=== PATIENT | male | born 1950 | race Caucasian/White ===

== ENCOUNTER → 2018-04-02 00:54 | Outpatient (CLI) | payer MEDICARE, SELFPAY ==
[2018-04-02 11:33] LABS: Cholesterol 214 mg/dL (50-200); HDL Cholesterol 54 mg/dL (40-60); LDL CHOLESTEROL 141 mg/dL (<100); Triglyceride 137 mg/dL (30-150)
== END ==
PROVIDERS: PCP Family Medicine; Visit Provider Family Medicine
DX: E78.5 Hyperlipidemia, unspecified (principal)
CPT/HCPCS: 36415; 80061; 83721

== ENCOUNTER → 2018-06-03 09:22 | Outpatient (BNVA) | payer MEDICARE, OTHER, SELFPAY | PROVIDERS: PCP Family Medicine; Referring Provider Family Medicine; Visit Provider Orthopaedic Surgery | DX: M25.562 Pain in left knee (principal); M17.12 Unilateral primary osteoarthritis, left knee | CPT/HCPCS: 20610; 99214; J1040 ==

== ENCOUNTER 2018-08-04 13:19 | Outpatient (CLI) | payer MEDICARE, OTHER, SELFPAY ==
--- NOTE | 2018-08-04 11:41 | DI.RAD_ITS ---
SYMPTOMS/DIAGNOSIS: LOW BACK PAIN, M54.5 LUMBAR SPINE: There is no evidence of compression fracture, spondylolysis or spondylolisthesis. There is no significant scoliosis. There are small to moderate-sized endplate osteophytes. Facet degenerative changes are seen, greatest at L4-5 and L5-S1. IMPRESSION: Degenerative changes, greatest at L4-5 and L5-S1.
== END 2018-08-04 13:39 ==
PROVIDERS: PCP Family Medicine; Visit Provider Family Medicine
DX: M47.817 Spondylosis without myelopathy or radiculopathy, lumbosacral region (principal); M54.5 Low back pain
CPT/HCPCS: 72110

== ENCOUNTER 2019-04-27 08:31 | Outpatient (CLI) | payer MEDICARE, SELFPAY ==
[2019-04-27 12:20] LABS: TSH 2.21 uIU/mL (0.36-3.74)
== END 2019-04-27 08:51 ==
PROVIDERS: PCP Family Medicine; Visit Provider Family Medicine
DX: E03.9 Hypothyroidism, unspecified (principal)
CPT/HCPCS: 36415; 84443

== ENCOUNTER → 2020-02-21 09:44 | Outpatient (BNVA) | payer MEDICARE, SELFPAY | PROVIDERS: PCP Family Medicine; Referring Provider Family Medicine; Visit Provider Orthopaedic Surgery | DX: M72.2 Plantar fascial fibromatosis (principal); M79.672 Pain in left foot | CPT/HCPCS: 99213 ==

== ENCOUNTER 2020-04-16 02:34 | Outpatient (CLI) | payer MEDICARE, SELFPAY ==
[2020-04-16 12:42] LABS: TSH 4.12 uIU/mL (0.36-3.74)
== END 2020-04-16 02:54 ==
PROVIDERS: PCP Family Medicine; Visit Provider Family Medicine
DX: E03.9 Hypothyroidism, unspecified (principal)
CPT/HCPCS: 36415; 84443

== ENCOUNTER 2021-05-10 02:34 | Outpatient (CLI) | payer MEDICARE, SELFPAY ==
[2021-05-10 12:36] LABS: Magnesium 1.9 mg/dL (1.8-2.4)
[2021-05-10 12:45] LABS: Calculated LDL 169 mg/dL (<100); Cholesterol 259 mg/dL (<200); HDL Cholesterol 65 mg/dL (40-60); Triglyceride 126 mg/dL (<150)
[2021-05-10 19:24] LABS: PSA, Screening 0.5 ng/mL (0.0-6.5)
== END 2021-05-10 02:35 | disposition home or self-care (01) ==
LOC: LOS 02:34
PROVIDERS: PCP Family Medicine; Visit Provider Family Medicine
DX: E03.9 Hypothyroidism, unspecified (principal); E83.42 Hypomagnesemia; N40.0 Benign prostatic hyperplasia without lower urinary tract symptoms; Z12.5 Encounter for screening for malignant neoplasm of prostate
CPT/HCPCS: 36415; 80061; 84153; 83735; 84443

== ENCOUNTER 2021-10-22 08:48 | Outpatient (CLI) | payer MEDICARE, SELFPAY ==
--- NOTE | 2021-10-22 08:30 | DI.RAD_ITS ---
Exam(s) XR SHOULDER RT COMPLETE 2+V EXAM: XR SHOULDER RT COMPLETE 2+V CLINICAL HISTORY: right shoulder pain TECHNIQUE: COMPARISON: CR LEFT SHOULDER COMPLETE from 09/12/2015 FINDINGS: Two views were obtained. There may be slight narrowing of the cartilaginous joint space of the gleno humeral joint. There are minimal hypertrophic marginal osteophytes of the humeral head and glenoid, mild hypertrophic degenerative changes also noted at the AC joint. IMPRESSION: Mild degenerative changes as described above. RADIATION DOSE DELIVERED: Total DLP
== END 2021-10-22 08:49 | disposition home or self-care (01) ==
LOC: DIORS 08:48
PROVIDERS: PCP Family Medicine; Referring Provider Family Medicine; Visit Provider Physician Assistant
DX: M25.511 Pain in right shoulder (principal); M19.011 Primary osteoarthritis, right shoulder; M75.101 Unspecified rotator cuff tear or rupture of right shoulder, not specified as traumatic; M75.51 Bursitis of right shoulder
CPT/HCPCS: 99213; 73030

== ENCOUNTER 2022-06-02 04:07 | Outpatient (CLI) | payer MEDICARE, SELFPAY ==
[2022-06-02 12:56] LABS: Anion Gap 7.3 mmol/L (3-11); BUN 19 mg/dL (7-18); CO2 29.7 mmol/L (21.0-32.0); CREATININE 1.2 mg/dL (0.70-1.30); Calcium 9.2 mg/dL (8.5-10.1); Calculated LDL 65 mg/dL (<100); Chloride 106 mmol/L (98-107); Cholesterol 145 mg/dL (<200); Estimated GFR 64.25 (mL/min/1.73m2); Glucose 93 mg/dL (74-106); HDL Cholesterol 63 mg/dL (40-60); Potassium 3.8 mmol/L (3.5-5.1); Sodium 143 mmol/L (136-145); TSH (W/Ref FT4) 1.19 uIU/mL (0.36-3.74); Triglyceride 89 mg/dL (<150)
== END 2022-06-02 04:08 | disposition home or self-care (01) ==
LOC: LOS 04:09
PROVIDERS: PCP Family Medicine; Visit Provider Family Medicine
DX: E03.9 Hypothyroidism, unspecified (principal); R79.89 Other specified abnormal findings of blood chemistry; I48.91 Unspecified atrial fibrillation
CPT/HCPCS: 36415; 80048; 80061; 84443

== ENCOUNTER 2022-06-16 11:41 | Outpatient (CLI) | payer MEDICARE, SELFPAY | END 2022-06-16 11:42 | disposition home or self-care (01) | LOC: DIORS 11:42 | PROVIDERS: PCP Family Medicine; Referring Provider Family Medicine; Visit Provider Physician Assistant | DX: M17.12 Unilateral primary osteoarthritis, left knee (principal) | CPT/HCPCS: 20610; J1040 ==

== ENCOUNTER → 2023-02-12 08:36 | Outpatient (BNVA) | payer MEDICARE, SELFPAY | PROVIDERS: PCP Family Medicine; Referring Provider Family Medicine; Visit Provider Physical Therapy Assistant | DX: Z12.11 Encounter for screening for malignant neoplasm of colon (principal) ==

== ENCOUNTER 2023-05-14 02:23 | Outpatient (CLI) | payer MEDICARE, SELFPAY ==
[2023-05-14 12:34] LABS: BUN 15 mg/dL (7-18); CREATININE 1.3 mg/dL (0.70-1.30); Calcium 9.4 mg/dL (8.5-10.1); Cholesterol 138 mg/dL (<200); Estimated GFR 58.01 (mL/min/1.73m2); Glucose 99 mg/dL (74-106)
[2023-05-14 12:35] LABS: ALT 39 U/L (16-63); AST 22 U/L (15-37); Albumin 3.8 g/dL (3.4-5.0); Alkaline Phosphatase 109 U/L (46-116); Anion Gap 5.9 mmol/L (3-11); Bilirubin, Total 1.5 mg/dL (0.2-1.0); CO2 30.1 mmol/L (21.0-32.0); Calculated LDL 53 mg/dL (<100); Chloride 105 mmol/L (98-107); HDL Cholesterol 72 mg/dL (40-60); Potassium 4.2 mmol/L (3.5-5.1); Sodium 141 mmol/L (136-145); TSH (W/Ref FT4) 3.43 uIU/mL (0.36-3.74); Total Protein 6.8 g/dL (6.4-8.2); Triglyceride 66 mg/dL (<150)
[2023-05-15 08:38] LABS: Hepatitis C Ab w Rflx HCV PCR Negative (Negative)
== END 2023-05-14 02:24 | disposition home or self-care (01) ==
LOC: LOS 02:23
PROVIDERS: PCP Family Medicine; Visit Provider Family Medicine
DX: R79.89 Other specified abnormal findings of blood chemistry (principal); Z00.00 Encounter for general adult medical examination without abnormal findings; Z13.6 Encounter for screening for cardiovascular disorders; E03.9 Hypothyroidism, unspecified
CPT/HCPCS: 36415; 80053; 80061; 86803; 84443

== ENCOUNTER 2024-01-31 12:35 | Emergency (ER) | payer MEDICARE, SELFPAY ==
[2024-01-31 12:41] VITALS: BP 110/74; PULSE 63; RESP 14; TEMP 36.4; O2SAT 99
--- NOTE | 2024-01-31 13:03 | W.ED.GENAD ---
Discharge Plan Disposition Patient Disposition: Home Condition: Stable Discharge Details Clinical Impression: Tick bite Primary Care Provider: Violet Mckeon ED Provider: Nathan Dotson Home Meds and New Rx's Prescriptions: Continued cholecalciferol (vitamin D3) 75 mcg (3,000 unit) tablet 2,000 unit PO DAILY multivitamin [Daily Multi-Vitamin] 1 EACH tablet 1 ea PO DAILY GLUCOSAMINE \T\ CHONDROITIN CAP 1 EACH capsule 1 ea PO DAILY PreserVision Lutein 1 EACH capsule 1 ea PO DAILY garlic 1 EACH capsule 1 ea PO DAILY vitamin E succinate 200 UNIT tablet 200 unit PO DAILY omega-3 fatty acids Capsule 1 cap PO DAILY atorvastatin 40 mg tablet 40 mg PO QHS Qty: 90 3RF levothyroxine 150 mcg tablet 150 mcg PO DAILY Qty: 90 2RF meloxicam 15 mg tablet 15 mg PO DAILY PRN (Reason: joint pain) Qty: 30 3RF omeprazole 20 mg capsule,delayed release(DR/EC) 20 mg PO DAILY Qty: 90 2RF acetaminophen [Tylenol] 325 MG tablet 650 mg PO PRN PRN Discharge Instructions Additional Instructions: Follow-up with your primary care provider if you develop any symptoms such as joint pain Feel more ill, or have symptoms such as high fevers or difficulty breathing return to the emergency department for reevaluation HPI General Mode of arrival: ambulatory. Date/Time Provider Initiated Documentation: 01/31/24 12:47. Limitations to Documentation: no limitations. Information obtained by: patient. History of Present Illness 73 year old M presents to the emergency department with the chief complaint of pulled tick off right oblique area, described as mild, Patient started experiencing this day(s) (2) and it has been constant. No relieving factors improve symptom(s), No exacerbating factors reported . Patient notes denies chest pain and shortness of breath. Patient did receive the following treatments prior to arrival, none Related Data Home Medications Medication Instructions Recorded Confirmed Glucosamine \T\ Chondroitin Cap 1 ea PO DAILY 06/22/13 01/31/24 multivitamin (Daily Multi-Vitamin 1 ea PO DAILY 06/22/13 01/31/24 tablet) vit C 226 mg-vit E 90 mg-copper 1 ea PO DAILY 04/19/14 01/31/24 0.8 mg-zinc oxide-lutein 5 mg capsule (PreserVision Lutein) garlic 1 ea PO DAILY 09/12/15 01/31/24 vitamin E succinate 134 mg (200 200 unit PO DAILY 12/16/17 01/31/24 unit) tablet acetaminophen 325 mg tablet 650 mg PO PRN PRN 01/26/18 01/31/24 (Tylenol) cholecalciferol (vitamin D3) 75 2,000 unit PO DAILY 06/16/22 01/31/24 mcg (3,000 unit) tablet omega-3 fatty acids 1 cap PO DAILY 02/25/23 01/31/24 atorvastatin 40 mg tablet 40 mg PO QHS #90 tabs 05/25/23 01/31/24 levothyroxine 150 mcg tablet 150 mcg PO DAILY #90 tabs 05/25/23 01/31/24 meloxicam 15 mg tablet 15 mg PO DAILY PRN joint pain #30 05/25/23 01/31/24 tabs omeprazole 20 mg capsule,delayed 20 mg PO DAILY #90 tab-caps 05/25/23 01/31/24 release Previous Rx's Medication Instructions Recorded atorvastatin 40 mg tablet 40 mg PO QHS #90 tabs 05/25/23 levothyroxine 150 mcg tablet 150 mcg PO DAILY #90 tabs 05/25/23 meloxicam 15 mg tablet 15 mg PO DAILY PRN joint pain #30 05/25/23 tabs omeprazole 20 mg capsule,delayed 20 mg PO DAILY #90 tab-caps 05/25/23 release Allergies Allergy/AdvReac Type Severity Reaction Status Date / Time No Known Allergies Allergy Unverified 01/31/24 12:46 General Stated Complaint: InsectBite JESSICA: 4 Review of Systems All systems reviewed & are unremarkable except as noted in HPI and below Constitutional Constitutional: Denies chills, Denies fever(s) and Denies weakness ENT Ears, Nose, Mouth, and Throat: Denies change in voice Cardiovascular Cardiovascular: Denies chest pain and Denies dyspnea Respiratory Respiratory: Denies cough and Denies dyspnea Gastrointestinal Gastrointestinal: Denies abdominal pain, Denies nausea and Denies vomiting Musculoskeletal Musculoskeletal: Denies joint swelling Neurologic Neurologic: Denies weakness Exam Const General: no acute distress Orientation: alert [facility] Head: normal to inspection Ears: external ears normal General nose exam: external nose normal Mouth: moist mucous membranes Eyes General: appearance normal, both eyes and all related structures Neck Neck: normal visual inspection Resp Effort & Inspection: normal respiratory effort and able to speak in complete sentences Cardio Rate: regular rate Skin General skin exam: elasticity normal Neuro General: patient alert and patient oriented x3 Extrem General: normal to inspection Psych Mental Status: mental status grossly normal Course Vital Signs Vital signs: Vital Signs Temperature 36.4 C 01/31/24 12:41 Pulse 63 01/31/24 12:41 Respiratory Rate 14 01/31/24 12:41 Blood Pressure 110/74 01/31/24 12:41 Pulse Oximetry 99 01/31/24 12:41 Temperature 36.4 C 01/31/24 12:41 Temperature Source Temporal Artery Scan 01/31/24 12:41 Pulse 63 01/31/24 12:41 Respiratory Rate 14 01/31/24 12:41 Respiratory Effort Normal 01/31/24 12:54 Blood Pressure 110/74 01/31/24 12:41 Blood Pressure Position Sitting 01/31/24 12:41 Pulse Oximetry 99 01/31/24 12:41 Oxygen Delivery Method Room Air 01/31/24 12:41 Oxygen Flow Rate 0 01/31/24 12:41 Pain Level 0 01/31/24 12:41 Medical Decision Making 73-year-old male comes in after he took a tick off his right oblique area. He says he feels well otherwise no fevers or systemic symptoms. Believes that the tick was on for 2 more days. He has a area of erythema about 2 cm in diameter with a small lesion in the middle where the tick was attached. No fluctuance or warmth or tenderness. Given he was on for over 36 hours we will provide prophylactic doxycycline, advised to follow-up with PCP if any symptoms develop, return precautions given Differential Diagnosis Differential Diagnosis: tick bite, irritation Quality:SDOH Health Related Social Needs: No Data to Display PFSH All Active Problems (Updated 01/31/24 @ 13:05 by Nathan Dotson MD) Tick bite (Acute) Arthritis of left knee (Acute) Atrial fibrillation (Acute 07/30/08) [id number] score:1 - no anticoagulation Hypothyroidism (Acute 11/18/13) Osteoarthritis (Acute) Plantar fasciitis of left foot (Acute) High serum low density lipoprotein (LDL) cholesterol (Acute) Macular degeneration of both eyes (Acute) Managed by Dr. Burr with injections Medical History (Updated 01/31/24 @ 13:05 by Nathan Dotson MD) Basal cell carcinoma, face (~05/2023) History of retinal detachment Surgical History (Updated 10/07/23 @ 14:14 by Violet Mckeon MD) S/P Mohs surgery for basal cell carcinoma (~10/07/23) Repair, ACL B/L Meniscectomy B/L Hemorrhoidectomy Extraction of cataract (~2006) O.S. Family History Daughter No problems noted. Social History (Updated 02/12/23 @ 08:58 by MARIA ANTONIA Broussard) Smoking/Tobacco Use Status: Former Tobacco Use Quit Date: 08/31/72 Second Hand Exposure: Yes Smoking risk assessment performed?: Yes Alcohol Intake: former Drug use: Daily Substance use type: marijuana Details: small amount of edibles at night as a sleep aid Caregiver/Support person: No Household members: none Number of Children: 1 number of grandchildren: 1 Education Level: college Details: BA in F[employer] from [employer] Do you need help understanding health information?: Never current occupation: Retired from business Pets and animals: No Sexually active: Yes Do you think of yourself as: straight/heterosexual Current gender identity: male How often do you talk on the phone with friends or family?: three or more times per week How often do you get together with friends or relatives?: three or more times per week Do you belong to any clubs or organized social groups?: yes Panel score (0-1 are the most socially isolated patients): 2 What type of physical activity do you participate in: walking Duration: 30-45 minutes/day Frequency: daily Susannah/Catholic: Gnosticism Special susannah needs: No Seatbelt use: sometimes Helmet use: Yes Helmet use: sometimes Drive intox or ride w/intox patient transportation driver: No Do you feel safe at home: Yes Do you feel safe in your relationship?: Yes
[2024-01-31] MEDS: Doxycycline Hyclate 100 MG CAP 200 MG PO (13:08)
== END 2024-01-31 13:12 | disposition home or self-care (01) ==
PROVIDERS: Emergency Provider Emergency Medicine; PCP Family Medicine
DX: S30.861A Insect bite (nonvenomous) of abdominal wall, initial encounter (principal); I48.91 Unspecified atrial fibrillation; Z87.891 Personal history of nicotine dependence; W57.XXXA Bitten or stung by nonvenomous insect and other nonvenomous arthropods, initial encounter
CPT/HCPCS: 99283

== ENCOUNTER 2024-05-25 02:42 | Outpatient (CLI) | payer MEDICARE, SELFPAY ==
[2024-05-25 12:35] LABS: Anion Gap 6.2 mmol/L (3-11); BUN 17 mg/dL (7-18); CO2 29.8 mmol/L (21.0-32.0); CREATININE 1.3 mg/dL (0.70-1.30); Calcium 9.1 mg/dL (8.5-10.1); Chloride 106 mmol/L (98-107); Estimated GFR 57.65 (mL/min/1.73m2); Glucose 97 mg/dL (74-106); Potassium 4.4 mmol/L (3.5-5.1); Sodium 142 mmol/L (136-145)
== END 2024-05-25 02:43 | disposition home or self-care (01) ==
PROVIDERS: PCP Family Medicine; Visit Provider Family Medicine
DX: I10 Essential (primary) hypertension (principal); I48.11 Longstanding persistent atrial fibrillation; E03.9 Hypothyroidism, unspecified
CPT/HCPCS: 36415; 80048; 84443

== ENCOUNTER 2024-10-03 07:57 | Outpatient (CLI) | payer MEDICARE, SELFPAY ==
--- NOTE | 2024-10-03 07:45 | RT.EKG_ITS ---
APPROVED REPORT Exam: Resting ECG Reason for Exam: afib Patient Location: O HR:74 bpm ECG Measurements Heart Rate 74 AXIS MI [id number] P [id number] QRSd 86 QRS 5 QT 386 T 2 QTc 429 Conclusion Atrial fibrillation...V-rate 56- 90, irreg A-activity Borderline T abnormalities, inferior leads...T flat/neg, II III aVF
== END 2024-10-03 07:58 | disposition home or self-care (01) ==
LOC: DI.CARD 07:57
PROVIDERS: PCP Family Medicine; Visit Provider Registered Nurse
DX: I48.11 Longstanding persistent atrial fibrillation (principal)
CPT/HCPCS: 93010

== ENCOUNTER → 2024-10-03 08:04 | Outpatient (BNVA) | payer MEDICARE, SELFPAY | PROVIDERS: PCP Family Medicine; Referring Provider Family Medicine; Visit Provider Registered Nurse | DX: I48.11 Longstanding persistent atrial fibrillation (principal) | CPT/HCPCS: 93005; 99215 ==

== ENCOUNTER 2025-03-14 03:11 | Outpatient (CLI) | payer MEDICARE, SELFPAY ==
--- NOTE | 2025-03-14 06:30 | DI.US_ITS ---
APPROVED REPORT EXAM: Comprehensive 2D, Doppler, and color-flow Echocardiogram Patient Location: Out-Patient Veneer Sample Maker: Carley Posey RDCS (AE) Indications: Atrial Fibrillation Other Information Study Quality: Good Conclusion Normal left ventricular wall thickness and chamber size. Ejection fraction is 55 to 60%. Wall motion is normal Normal right ventricular size and function Both atria are severely enlarged There are no structural valvular abnormalities Mild mitral regurgitation Moderate tricuspid regurgitation with estimated right ventricular systolic pressure of 24 mmHg Ascending aorta measures 4.03 cm Wall motion Left Ventricle The left ventricle is normal size. The left ventricular systolic function is normal. The left ventricular ejection fraction is within the normal range. There is normal left ventricular wall thickness. There is normal LV segmental wall motion. There is no ventricular septal defect visualized. LVEF is 55%. Right Ventricle Right ventricle is not well visualized. Right ventricular systolic function could not be assessed. Atria Left atrium is severely dilated. Right atrium is severely dilated. The interatrial septum is intact with no evidence for an atrial septal defect. Aortic Valve The aortic valve is normal in structure. Aortic valve is trileaflet. There is no aortic valvular stenosis. No aortic regurgitation is present. Mitral Valve The mitral valve is normal in structure. No evidence of mitral valve stenosis. Mild mitral regurgitation. Tricuspid Valve The tricuspid valve is normal in structure. There is no tricuspid valve stenosis. Moderate tricuspid regurgitation. The RVSP is 24.4 mmHg. Pulmonic Valve The pulmonary valve is normal in structure. There is no pulmonic valvular stenosis. Trace pulmonic regurgitation. Great Vessels The aortic root is normal in size. The ascending aorta is moderately dilated. Aortic arch is not well visualized. IVC is normal in size and collapses >50% with inspiration. Pericardium There is no pericardial effusion. 2D Dimensions IVSD d PLAX 0.99 cm M: 0.6-1.2 Ao Root d 3.22 cm M: 3.1 - 3.7 LVPW d PLAX 0.95 cm M: 0.6 - 1.2 Ao Asc Diam d 4.03 cm M: 2.6 - 3.4 LVID d PLAX 4.24 cm M: 4.2 - 5.8 LVDs 3.02 cm M: 2.5 - 4.0 LV EF Teichholz 55.7 % FS 28.74 % LV EDV (Teich) 80.3 mL LV ESV (Teich) 35.6 mL M-Mode TAPSE 1.82 cm (M/F) >1.7 Auto EF LV EDV A4C 101.1 mL LV EDV A2C 127.3 mL LV EDV BP 115.2 mL LV ESV A4C 47.3 mL LV ESV A2C 57.9 mL LV ESV BP 52.0 mL LVEF(%) A4C 53.2 % LVEF(%) A2C 54.5 % LVEF(%) BP 54.9 % LV SV A4C 53.8 ml LV SV A2C 69.3 ml LV SV BP 63.2 ml LV CO A4C 2.9 L/min LV CO A2C 3.6 L/min LV CO BP 3.3 L/min HR A4C 53.49 BPM HR A2C 52.62 BPM LV EDV Index (BP) LA Volume LA Length A4C 6.8 cm LA Length A2C 6.9 cm LA Area A4C s 29.35 cm2 LA Area A2C s 29.65 cm2 LA Vol A4C A-L 107.31 mL LA Vol A2C A-L 107.95 mL LA Vol Biplane A-L 108.4 mL LA Vol/BSA A4C A-L LA Vol/BSA A2C A-L LA Vol/BSA BP A-L 49.1 mL/m2 LA Vol A4C MOD 97.4 mL LA Vol A2C MOD 100.0 mL LA Vol BP MOD 99.4 mL RA Volume RA Area A4C 26.0 cm2 RA ESV A4C (A-L) 92.4mL RA Vol/BSA A4C A-L RA Length A4C 6.2 cm RA ESV A4C (MOD) 87.2mL LV Diastology MV E' medial 0.097 (>0.07 m/s) MV E Vmax 0.65 (0.4-1.3 m/s) MV E/E' MED 6.72 (<14) MV E' lateral 0.170 (>0.1 m/s) MV E/E' LAT 3.85 (<14) MV E' Average 0.133 m/s MV E/E'(average) 4.90 Aortic Valve AoV Vmax 1.23 m/s LVOT Vmax 0.81 m/s AoV Peak Grad 6.1 mmHg LVOT Peak Grad 2.6 mmHg AoV Area (Vmax) 2.11 cm2 LVOT VTI 0.179 m AoV VTI 0.299 m LVOT Mean Grad 1.3 mmHg AoV Mean Russell. 0.87 m/s LVOT SV 57.17 mL AoV Mean Grad 3.5 mmHg LVOT Diam s 2.00 cm AoV Area (VTI) 1.91 cm2 AV Regurg Peak Gr. 6.05 mmHg Velocity Ratio 0.66 Mitral Valve MV DT 213 (160-240 msec) MV Vmax TIPS 0.61 m/s MV Mean Grad 0.7 (<2mmHg) MV VTI 0.119 m Pulmonary Valve PV Vmax 0.79 (0.5-1.5 m/s) RVOT Vmax 0.69 m/s PV Peak Grad 2.5 mmHg RVOT Peak Gr. 1.9 mmHg PV Mean Russell 0.53 m/s RVOT VTI 0.157 m PV Mean Grad 1.3 mmHg RVOT Mean Gr. 0.9 mmHg Tricuspid Valve RA Pressure 3.00 mmHg TR Vmax 2.31 m/s TV S' 0.13 m/s TR Peak Grad 21.3 mmHg RVSP (TR) 24.4 mmHg
== END 2025-03-14 03:31 ==
PROVIDERS: PCP Family Medicine; Visit Provider Internal Medicine Cardiovascular Disease
DX: I48.91 Unspecified atrial fibrillation (principal); I34.0 Nonrheumatic mitral (valve) insufficiency
CPT/HCPCS: 93306

== ENCOUNTER → 2025-04-03 09:27 | Outpatient (BNVA) | payer MEDICARE, SELFPAY | PROVIDERS: PCP Family Medicine; Referring Provider Family Medicine; Visit Provider Registered Nurse | DX: I48.11 Longstanding persistent atrial fibrillation (principal); I10 Essential (primary) hypertension | CPT/HCPCS: 99214 ==

== ENCOUNTER 2025-06-08 00:54 | Outpatient (CLI) | payer MEDICARE, SELFPAY ==
[2025-06-08 14:25] LABS: Anion Gap 6.8 mmol/L (3-11); BUN 21 mg/dL (7-18); CO2 30.2 mmol/L (21.0-32.0); Calcium 9.8 mg/dL (8.5-10.1); Calculated LDL 58 mg/dL (<100); Chloride 106 mmol/L (98-107); Cholesterol 137 mg/dL (<200); Estimated GFR 70.01 (mL/min/1.73m2); Glucose 101 mg/dL (74-106); HDL Cholesterol 70 mg/dL (>or=40); Potassium 4.3 mmol/L (3.5-5.1); Sodium 143 mmol/L (136-145); TSH (W/Ref FT4) 0.36 uIU/mL (0.36-3.74); Triglyceride 48 mg/dL (<150)
[2025-06-08 23:59] LABS: PSA, Screening 1.0 ng/mL (<=6.5)
== END 2025-06-08 00:55 | disposition home or self-care (01) ==
LOC: LOS 00:55
PROVIDERS: PCP Family Medicine; Visit Provider Family Medicine
DX: R79.89 Other specified abnormal findings of blood chemistry (principal); Z12.5 Encounter for screening for malignant neoplasm of prostate; I10 Essential (primary) hypertension
CPT/HCPCS: 36415; 80048; 80061; 84153; 84443